=== PATIENT | female | born 1975 | race Caucasian/White ===

== ENCOUNTER 2023-10-01 06:32 | Day surgery (SDC) | payer BC, SELFPAY ==
[2023-10-01] VITALS (11 sets, daily range): BP systolic 105–132; BP diastolic 58–92; BMI 32.0
[2023-10-01] MEDS: CELEBREX 200 MG PO (09:02)
[2023-10-01] MEDS: TYLENOL 1000 MG PO (09:03)
[2023-10-01] MEDS: NORMOSOL-R 1000 IV (09:03)
[2023-10-01] MEDS: SUBLIMAZE 50 MCG IV ×2 (11:25→12:05)
[2023-10-01] MEDS: ROXICODONE 5 MG PO (13:27)
== END 2023-10-01 13:45 | disposition home or self-care (01) ==
LOC: SDS 06:32
PROVIDERS: ATTENDING PHYSICIAN Specialist
DX: S83.241A Other tear of medial meniscus, current injury, right knee, initial encounter (principal); S83.281A Other tear of lateral meniscus, current injury, right knee, initial encounter; X58.XXXA Exposure to other specified factors, initial encounter; M22.41 Chondromalacia patellae, right knee
CPT/HCPCS: 29881; 29879

== ENCOUNTER → 2024-05-27 10:26 | Outpatient (REF) | payer BC, SELFPAY | LOC: WDC 10:26 | PROVIDERS: ATTENDING PHYSICIAN Nurse Practitioner Adult Health; FAMILY PHYSICIAN Nurse Practitioner | DX: Z12.31 Encounter for screening mammogram for malignant neoplasm of breast (principal) | CPT/HCPCS: 77063; 77067 ==

== ENCOUNTER → 2024-08-20 13:05 | Outpatient (REF) | payer BC, SELFPAY | LOC: HWRAD 13:05 | PROVIDERS: ATTENDING PHYSICIAN Nurse Practitioner Adult Health; FAMILY PHYSICIAN Nurse Practitioner | DX: N95.0 Postmenopausal bleeding (principal) | CPT/HCPCS: 76830; 76856 ==

== ENCOUNTER 2024-12-12 12:22 | Emergency (ER) | payer BC, SELFPAY ==
[2024-12-12 12:25] VITALS: BP 159/120
[2024-12-12 12:42] LABS: % Basophils 0.2 % (0-2); % Eosinophils 2.7 % (0-6); % Immature Granulocytes 0.7 % (0-0.5); % Lymphocytes 24.7 % (20.5-51.1); % Monocytes 7.5 % (1.7-9.3); % Neutrophils 64.2 % (42.2-75.2); Absolute Eosinophils 0.2 10^3/uL (0-0.7); Absolute Immature Granulocytes 0.1 10^3/uL (0-0.05); Absolute Lymphocytes 2.2 10^3/uL (1.2-3.4); Absolute Monocytes 0.7 10^3/uL (0.1-0.6); Absolute Neutrophils 5.6 10^3/uL (1.4-6.5); Hematocrit 37.8 % (37.0-47.0); Hemoglobin 12.2 g/dL (12.0-16.0); Mean Corp Hgb Conc. 32.3 g/dL (33.0-37.0); Mean Corpuscular Hgb 27.4 pg (27.0-31.0); Mean Corpuscular Volume 84.9 fL (81.0-99.0); Nucleated Red Blood Cells % 0 %; Platelet Count 293 10^3/uL (130-400); Red Blood Cell Count 4.45 10^6/uL (4.20-5.40); Red Cell Dist. Width 13.5 % (11.5-14.5); White Blood Cell Count 8.8 10^3/uL (4.8-10.8)
[2024-12-12 12:51] LABS: HCG, Serum Qualitative Screen Negative
[2024-12-12 12:55] LABS: ALT (SGPT) 35 U/L (0-35); AST (SGOT) 26 U/L (14-36); Albumin 4.5 g/dl (3.5-5.0); Alkaline Phosphatase 108 U/L (38-126); Blood Urea Nitrogen 11 mg/dl (7-17); Calcium 9.1 mg/dl (8.4-10.2); Carbon Dioxide 22 mmol/L (22-30); Chloride 109 mmol/L (98-107); Glucose 134 mg/dl (70-99); Potassium 4.2 mmol/L (3.5-5.1); Sodium 140 mmol/L (135-145); Total Bilirubin 0.4 mg/dl (0.2-1.3); eGFR > 60.00
[2024-12-12 13:05] LABS: Troponin I < 0.012 ng/ml
--- NOTE | 2024-12-12 14:29 | ED.GENMED ---
History of Present Illness
General
Chief Complaint: Chest Pain
Source: patient
Time Seen by Provider: 12/12/24 13:25
History of Present Illness
History of Present Illness:
Old female with past medical history of migraines, hyperlipidemia, GERD status post upper endoscopy done just a few days ago presenting to the emergency department for evaluation of mild shortness of breath and chest tightness, today slightly worse
prompting her to come to the ER for further evaluation. States that over the last 6 months or so her GERD has been worse and was not as responsive to the omeprazole which is why she had the endoscopy earlier this week, was told that she had
gastritis and is working with her GI to improve the symptoms. The shortness of breath and chest discomfort is new for the patient. He does endorse a slight nonproductive cough but states this is usual for her rounds, year. Denies any fevers or
recent illnesses. Social history was otherwise noncontributory. Family history is noted for father passing away in his late 70s due to an UT.
Past History
Past History
ED Past Medical History: GERD, Hypothyroidism and Other
ED Past Surgical History: Cholecystectomy, Orthopedic, Tonsilectomy and Other (Gastric sleeve surgery August 2014)
Social History
Tobacco: Non-smoker
Alcohol: None
Drug: None
Personal:
Living: with family
Employment: Employed
Family History
Family History: Other (Noncontributory)
Review of Systems
Review of Systems
All Other Systems: ROS reviewed and negative except as documented in HPI and ROS
Phy Exam
Physical Exam
Physical Exam:
GENERAL: Alert , in no apparent distress
EYE: conjunctiva clear
NECK: Supple, no significant adenopathy.
ENT: o/p clr, mmm.
CARDIAC: Tachycardic rate, normal rhythm, heart rate between 100-110 bpm
LUNGS: Clear breath sounds bilaterally, no acute respiratory distress, no wheezes/rales/rhonchi
NEUROLOGICAL: Alert and oriented
SKIN: Warm and dry, skin intact.
MUSCULOSKELETAL: well perfused.
PSYCH: Normal and appropriate interaction.
Scores
Heart Failure Risk
Heart Failure Risk Score: Not Applicable
Heart Score for Chest Pain Patients
STEMI patient?: No
History: Slightly or Non-Suspicious
ECG: Normal
Age: >45 - <65 years
Risk Factors: 1 or 2 Risk Factors
Troponin: </= Normal Limit
Heart Score for Chest Pain Patients: 2
Heart Score Risk: 2.5% MACE over next 6 weeks
Withdrawal Assessment of Alcohol
Withdrawal Assessment Completed?: Not applicable
Course
Orders/Labs/Results
Orders:
Orders
12/12/24 12:23
Electrocardiogram (*1) Urgent
Reason for Study: Chest Pain
EKG- Treatment ONCE
Test Result ONCE
12/12/24 12:34
Complete Blood Count/With Diff Urgent
Comprehensive Metabolic Panel Urgent
HCG, Serum Qualitative Screen Urgent
Comment: Notify provider if positive test present
NT-proBNP Urgent
Comment: PROBNP ADDED ON BY FLOOR 3:10PM 12-12-24
Troponin I Urgent
12/12/24 13:04
CR Chest - 2 Views Urgent
Comment:
Reason For Exam: SOB
12/12/24 13:37
Add On- LAB Urgent
Tests Added?: BNP
12/12/24 14:36
D-Dimer Urgent
12/12/24 15:12
Add On- LAB Urgent
Comments:: tube in lab
Tests Added?: Pro- BNP
Abnormal Lab Results
12/12/24
12:34
MCHC 32.3 L g/dL
(33.0-37.0)
Abs Immat Gran (auto) 0.1 H 10^3/uL
(0-0.05)
Absolute Monos (auto) 0.7 H 10^3/uL
(0.1-0.6)
Immature Gran % 0.7 H %
(0-0.5)
Chloride 109 H mmol/L
(98-107)
Glucose 134 H mg/dl
(70-99)
12/12/24 12:34
12/12/24 12:34
Vital Signs
Initial and Last Documented VS:
Initial Vital Signs
Temp Pulse Resp BP Pulse Ox
98.6 F 111 18 159/120 98
12/12/24 12:25 12/12/24 12:25 12/12/24 12:25 12/12/24 12:25 12/12/24 12:25
Last Documented Vital Signs
Temp Pulse Resp BP Pulse Ox
98.6 F 80 18 130/88 97
12/12/24 12:25 12/12/24 16:15 12/12/24 16:15 12/12/24 16:15 12/12/24 16:15
MDM/Problems Addressed
Differential Diagnosis Includes:
- GERD/gastritis
- Aspiration
- Pneumonia
- PE
- Atypial ACS presentation
- Anxiety
MDM/Problems Addressed:
49-year-old female presenting to the ER for evaluation of some shortness of breath and chest discomfort since Saturday, today symptoms slightly worse. Patient is tachycardic here but otherwise hemodynamically stable. EKG done in triage shows a
sinus tachycardia with no ischemic changes or ectopy. Labs were also initiated which are unremarkable. I did add on a D-dimer and BNP. Chest x-ray pending. Reassessment following.
*Radiology
Radiology exam reviewed: preliminary read by ED provider (Normal chest x-ray)
*Pulse Oximetry
SaO2: 98
Oxygen Mode of Delivery: Room air
Patient hypoxic: no
*EKG
Heart Rate: 102
Rate: normal
Rhythm: sinus
[place]: normal axis
Ischemia: no ischemia
*Ship Painter Helper Interpretation
Rate: tachycardiac
Heart Rate: 106
Rhythm: sinus
*Critical Care Note
Total Time (30-74mins, 75-104mins- exclusive of procedures): Not Applicable
Patient Management
Escalation/DeEscalation of care consider admission/obs:
Patient's D-dimer and BNP are within normal limits. Heart rate improved into the low 80s. Patient she feels comfortable being discharged home and will follow-up with her primary care provider as an outpatient. Aware of return precautions to the
emergency department.
ED Attending Note
-
Portions of this chart may have been created with voice recognition software.� Occasional wrong word or��sound alike� substitutions may have occurred due to the inherent limitations of voice recognition software.
Discharge Plan
Departure
Patient Disposition: Home (Routine Discharge)
Date of Disposition: 12/12/24
Time of Disposition: 16:13
Patient with high blood pressure during this ER visit?: Yes
Discharge Problem:
Shortness of breath
Instructions: Shortness of breath in adults - ED discharge instructions
Prescriptions:
No Action
omeprazole 40 mg Capsule,Delayed Release(Dr/Ec)
20 mg PO DAILY
hydroxyzine HCl 50 mg Tablet
50 mg PO HS
spironolactone 25 mg Tablet
25 mg PO QPM
fluoxetine 60 mg Tablet
60 mg PO DAILY
Veozah 45 mg Tablet
45 mg PO DAILY
Caltrate Bone Health Advanced
1 dose PO DAILY
One A Day Womens Menopause
1 dose PO DAILY
Osteo Bi Flex Joint Health
1 dose PO DAILY
Referrals:
Jacqueline Medina CRNP [Family Provider, Internal Medicine]
Interventions
Interventions:
*Risk Screen - Suicide Last Done: 12/12/24 12:25
*General Assessment Last Done: 12/12/24 16:15
*Neglect/Abuse Screening Last Done: 12/12/24 12:25
*ED- Fall Risk Assessment Last Done: 12/12/24 16:15
*Nursing Disposition Last Done: 12/12/24 16:15
ED- Cardiac Assessment Last Done: 12/12/24 14:30
Discharge Date and Time
Print Language: MACEDONIAN
[2024-12-12 15:07] LABS: D-Dimer < 0.27 ug/mlFEU (0.00-0.50)
[2024-12-12 15:55] LABS: NT-proBNP < 20.0 pg/ml
[2024-12-12 16:15] VITALS: BP 130/88
== END 2024-12-12 16:20 | disposition home or self-care (01) ==
LOC: EMR 12:22
PROVIDERS: Emergency Medicine; Physician Assistant Medical; EMERGENCY PHYSICIAN Student in an Organized Health Care Education/Training Program; FAMILY PHYSICIAN Nurse Practitioner
DX: R06.02 Shortness of breath (principal); R07.89 Other chest pain; R03.0 Elevated blood-pressure reading, without diagnosis of hypertension; R00.0 Tachycardia, unspecified; K29.70 Gastritis, unspecified, without bleeding; G43.909 Migraine, unspecified, not intractable, without status migrainosus; E78.5 Hyperlipidemia, unspecified; K21.9 Gastro-esophageal reflux disease without esophagitis; E03.9 Hypothyroidism, unspecified; Z98.890 Other specified postprocedural states; Z90.49 Acquired absence of other specified parts of digestive tract; Z98.84 Bariatric surgery status; Z88.5 Allergy status to narcotic agent; Z91.013 Allergy to seafood
CPT/HCPCS: 99283; 71046; 80053; 83880; 84484; 84703; 85025; 85379; 93005